=== PATIENT | female | born 1965 | race Caucasian/White ===

== ENCOUNTER 2016-09-26 14:50 | Outpatient (CLI) ==
--- NOTE | 2016-09-26 15:34 | DI ---
EXAM: Five views of the lumbar spine. History: Lower back pain. Findings: Age indeterminate anterior compression deformities at T11 and T12. Moderate to severe di sc space narrowing at T11-T12 with prominent anterior osteophyte. Minimal retrolisthesis of L3 on L 4. Mild to moderate disc space narrowing at L3-L4 and L5-S1. Mild to moderate facet hypertrophy at L5-S1. Small nonspecific pelvic calcifications are probably phleboliths. Impression: Age indeterminate anterior compression deformities at T11 and T12. Moderate to severe degenerative disc disease and T11-T12. Other findings as detailed above.
== END 2016-09-26 14:51 | disposition home or self-care (01) ==
LOC: RAD 14:50
PROVIDERS: ATTEND Nurse Practitioner Family
DX: M54.5 Low back pain (principal); M51.26 Other intervertebral disc displacement, lumbar region

== ENCOUNTER 2017-07-31 12:41 | Inpatient (IN) ==
[2017-07-31] MEDS ORDERED: DECADRON 4 MG/ML SDV IVP STA (14:11)
[2017-07-31 15:03] VITALS: BMI 26.5
[2017-07-31] MEDS: SODIUM CHLORIDE 1,000 ML IV SCH (15:55)
[2017-07-31] MEDS: TAMIFLU PO SCH ×2 (15:55→20:28)
--- NOTE | 2017-07-31 15:55 | DI ---
EXAM: CHEST FRONTAL AND LATERAL VIEWS HISTORY: Cough. COMPARISON: None FINDINGS: Heart size and mediastinal contour within normal limits. No acute infiltrates. Normal vascularity with no pleural fluid or pneumothorax. The bony thorax has no acute finding. IMPRESSION: No acute process.
[2017-07-31] MEDS: MULTIVITAMIN TABLET PO SCH (15:56)
[2017-07-31] MEDS: DICLOFENAC SODIUM 100 MG PO SCH (15:57)
[2017-07-31] MEDS ORDERED: LIDOCAINE VISCOUS 2% 15 ML UD MUCOUSMEMB PRN (21:29)
[2017-07-31] MEDS ORDERED: LIDOCAINE VISCOUS 2% 15 ML UD MUCOUSMEMB ONE (21:31)
[2017-08-01] MEDS: SODIUM CHLORIDE 1,000 ML IV SCH ×3 (01:45→21:22)
[2017-08-01] MEDS ORDERED: LIDOCAINE VISCOUS 2% 15 ML UD MUCOUSMEMB PRN (02:03)
[2017-08-01] MEDS: TAMIFLU PO SCH ×2 (08:24→20:18)
[2017-08-01] MEDS: MULTIVITAMIN TABLET PO SCH (08:24)
[2017-08-01] MEDS: DICLOFENAC SODIUM 100 MG PO SCH (08:26)
[2017-08-01] MEDS ORDERED: ZITHROMAX PO STA (08:50)
[2017-08-01] MEDS ORDERED: DECADRON 4 MG/ML SDV IM ONE (09:00)
[2017-08-01] MEDS ORDERED: DECADRON 4 MG/ML SDV IM SCH (09:00)
[2017-08-02] MEDS: SODIUM CHLORIDE 1,000 ML IV SCH (08:01)
[2017-08-02] MEDS: TAMIFLU PO SCH (08:10)
[2017-08-02] MEDS: MULTIVITAMIN TABLET PO SCH (08:11)
[2017-08-02] MEDS: DICLOFENAC SODIUM 100 MG PO SCH (08:12)
[2017-08-02] MEDS ORDERED: ZITHROMAX PO SCH (09:00)
[2017-08-02 10:12] VITALS: BP 118/72; TEMP 98.4
--- NOTE | 2017-08-14 10:54 | DS ---
DATE OF SERVICE: 08/02/17 FINAL DIAGNOSIS: 1. SYNCOPE, MOST LIKELY VASOVAGAL FROM DEHYDRATION AND HYPOTENSION 2. INFLUENZA A POSITIVE 3. DEHYDRATION 4. HISTORY OF LEFT KNEE ARTHRITIS 5. III/PARA II PLAN: 1. Discharge the patient home. 2. New medications: Azithromycin 250 mg finish the course. Tamiflu 75 mg twice a day for three more days. Prednisone 10 mg twice a day for five more days. 3. Diet: Healthy diet. 4. Activity: As much as tolerated. DISEASE SPECIFIC EDUCATION: About the dehydration and influenza were discussed and she verbalized understanding. HOSPITAL COURSE: Callie Calix, who is a 52 year old female who is very healthy and athletic who runs and jogs, came to the emergency room where she had two near syncopal episodes. She started coughing, congested, nausea, vomiting and not able to keep anything down. Blood pressure was systolic 90 at the office. At that time with the complaint of near syncope and hypotension, the patient was admitted to the hospital. Influenza A was positive. She was started on IV fluids, Tamiflu 75 mg p.o. twice daily and Decadron shot was given. With the given treatment, by the next day the patient's blood pressure was better. The patient was not dizzy or lightheaded anymore and complaining of the sore throat. Rapid strep was negative at the office. The patient was started on the Z pack and the Decadron, breathing treatments. Chest x-ray was negative. Nausea and vomiting was resolved. By today, the patient is more awake, alert and did not have any problems. She was up and about walking. She still some weakness, otherwise the patient was afebrile every since she was in the hospital. At that time, the patient was discharged home. TIME SPENT: MORE THAN 65 MINUTES MTDD
--- NOTE | 2017-08-14 11:00 | PN ---
DATE OF SERVICE: 08/01/17 SUBJECTIVE: The patient was admitted from the office yesterday for the upper respiratory infection, near-syncopal episodes from dehydration. No syncope or dizziness today. She is still having some sore throat and some coughing. No fever or chills. REVIEW OF SYSTEMS: CONSTITUTIONAL: No fever, no chills. HEENT: Jenni throat. ENDOCRINE: No weight gain, no weight loss. CVS: No angina symptoms. No CHF symptoms. No palpitations. No atypical chest pain for CAD. No shortness of breath. No PND, no orthopnea. RESPIRATORY: Cough, no hemoptysis. GI: No nausea, no vomiting. No abdominal pain. : No hematuria. No polyuria. MUSCULOSKELETAL: No joint swelling. PSYCHIATRIC: Not anxious. No depression. No suicidal thoughts. No homicidal thoughts. SKIN: Intact. No rash. PHYSICAL EXAMINATION: V/S: Blood pressure 110/64, respiratory rate 20, heart rate 76, temperature 96.1 , saturation 96. HEENT: Normocephalic, atraumatic. Mucosa dry. Throat looks red. NECK: Supple. No JVD, no carotid bruit. No lymphadenopathy. LUNGS: Clear to auscultation. No rales or rhonchi. HEART: S1, S2 normal. No S3. No murmur, gallop or regurgitation. ABDOMEN: Soft, nontender. Bowel sounds active. No rigidity. No rebound or guarding. No CVA tenderness. EXTREMITIES: No pedal edema. No clubbing or cyanosis MUSCULOSKELETAL: No joint swelling. NEUROLOGIC: Awake, alert, oriented times three. No focal deficit. LYMPHATIC: No lymph nodes palpable. SKIN: Intact. LABS: White count 4.68, hemoglobin 12.0, hematocrit 34.9, platelet count 233, sodium 139, potassium 3.7, chloride 107, bicarb 23, BUN 13, creatinine 0.68. ASSESSMENT: 1. STATUS POST SYNCOPAL EPISODE 2. DEHYDRATION 3. UPPER RESPIRATORY INFECTION 4. FLU LIKE SYMPTOMS PLAN: 1. IV fluids. 2. Decadron. 3. Azithromycin. 4. Tamiflu twice daily. TIME SPENT: More than 35 minutes today. MTDD
== END 2017-08-02 13:40 | disposition home or self-care (01) | DRG 153 ==
LOC: MEDSURG A 12:41 → OBSVTOIN 12:41
PROVIDERS: ADMIT Emergency Medicine; ATTEND Emergency Medicine
DX: J11.1 Influenza due to unidentified influenza virus with other respiratory manifestations (principal); I95.9 Hypotension, unspecified; R55 Syncope and collapse; E86.0 Dehydration; R11.2 Nausea with vomiting, unspecified
CPT/HCPCS: 36415; 80053; 81001; 82550; 84484; 85025; 93005; 93010

== ENCOUNTER 2017-07-31 12:54 | Outpatient (CLI) | END 2017-07-31 12:55 | disposition home or self-care (01) | LOC: LAB 12:54 | PROVIDERS: ATTEND Emergency Medicine | DX: J06.9 Acute upper respiratory infection, unspecified (principal) | CPT/HCPCS: 87502; 87651 ==